=== PATIENT | male | born 1950 | race Caucasian/White ===

== ENCOUNTER 2023-03-19 10:00 | Day surgery (SDC) | payer OTHER ==
[~2023-03-19] VITALS: Ht 175.3 cm; Wt 77.1 kg
[~2023-03-19 10:00] MED LIST: ceFAZolin SODIUM 2 GM in D5W 50 ML IV ONE
[2023-03-19 15:11] VITALS: O2SAT 97
[2023-03-19] MEDS ORDERED: METOCLOPRAMIDE HCL 10 MG/2 ML VIAL IVP PRN (15:45)
[2023-03-19] MEDS ORDERED: ONDANSETRON HCL 4 MG/2 ML VIAL IVP PRN (15:45)
[2023-03-19] MEDS ORDERED: fentaNYL CITRATE/PF 100 MCG/2 ML AMP IVP PRN ×2 (15:45)
[2023-03-19] MEDS ORDERED: ROCURONIUM BROMIDE 10 MG/ML (ZEMURON) ONE (16:20)
[2023-03-19] MEDS ORDERED: LR 1,000 ML IV.SOLN IV ONE (16:20)
[2023-03-19] MEDS ORDERED: SEVOFLURANE 15 MIN GAS INH ONE (16:20)
[2023-03-19] MEDS ORDERED: SUCCINYLCHOLINE CHLORIDE 20 MG/ML(QUELICIN) ONE (16:20)
[2023-03-19] MEDS ORDERED: BUPIVACAINE /PF 0.25% 30 ML VIAL INJ ONE (16:20)
[2023-03-19] MEDS ORDERED: PROPOFOL 200MG/ 20ML VIAL (DIPRIVAN) IV ONE (16:20)
[2023-03-19] MEDS ORDERED: NS IRRIG SOLN 1000 ML IR ONE (16:20)
[2023-03-19] MEDS ORDERED: fentaNYL CITRATE/PF 100 MCG/2 ML AMP ONE ×2 (16:46→18:19)
[2023-03-19 18:54] VITALS: BP_SYST 150; PULSE 56; RESP 16; TEMP 97.6
[2023-03-19] MEDS ORDERED: ONDANSETRON HCL 4 MG/2 ML VIAL ONE (19:29)
== END 2023-03-19 20:04 | disposition home or self-care (01) ==
LOC: SMU 10:00 → SDS 10:00
PROVIDERS: ATTEND Surgery
DX: K40.91 Unilateral inguinal hernia, without obstruction or gangrene, recurrent (principal); K42.9 Umbilical hernia without obstruction or gangrene; I10 Essential (primary) hypertension; E03.9 Hypothyroidism, unspecified; E78.5 Hyperlipidemia, unspecified; I25.10 Atherosclerotic heart disease of native coronary artery without angina pectoris; I25.2 Old myocardial infarction; Z72.0 Tobacco use; Z79.899 Other long term (current) drug therapy
CPT/HCPCS: 87081; 49651; 49591; 88302; J3490; J2405; J2704; J0330; J3010; J7060; J7120; C1727; C1781; 88304; E0190